=== PATIENT | male | born 1990 | race Caucasian/White ===

== ENCOUNTER 2016-11-05 12:23 | Emergency (ER) | payer BC, MEDICAID ==
--- NOTE | 2016-11-05 13:02 | EDM.PDOC ---
ED HPI ENT - General Chief Complaint: ENT Problem Stated Complaint: DENTAL COMPLAINT Time Seen by Provider: 11/05/16 12:50 Source of Information: Reports: Patient History Limitations: Reports: No limitations - History of Present Illness INITIAL COMMENTS - FREE TEXT/NARRATIVE: Patient presents for evaluation and treatment of dental pain and possibly a dental abscess. Patient reports that his symptoms have been going on for the last 3 days. He was seen in our ER on September 01, 2016 for a similar complaint. At that time he had several teeth pulled. He was started on clindamycin and given pain medications for an abscess at that time. Patient reports that he has not been able to get back to the dentist since his ER visit. Plan is to have additional teeth extracted. States after his ER visit the pain did subside with the antibiotic and pain medication. Patient reports he had a clindamycin left from his previous visit and took one pill today. He is currently complaining of pain to the left lower molars, headaches, nausea and chills. He states the pain is radiating up into his left ear. He denies any fevers or vomiting. Patient states that he has not taken anything for pain today. He does have a dental appointment for next week. - Related Data Allergies/ADRs: Allergies Allergy/AdvReac Type Severity Reaction Status Date / Time amoxicillin [From Augmentin] Allergy Rash Verified 11/05/16 12:36 clavulanic acid Allergy Rash Verified 11/05/16 12:36 [From Augmentin] Home Meds: Home Meds Acetaminophen/oxyCODONE [Percocet 325-5 MG] 1 tab PO Q6H PRN #15 tablet [Rx] Clindamycin HCl 300 mg PO TID #30 capsule 11/05/16 [Rx] Past Medical History - Past Health History Medical/Surgical History: Denies Medical/Surgical History - Past Surgical History HEENT Surgical History: Reports: Oral surgery Social & Family History - Tobacco Use Smoking Status *Q: Current Every Day Smoker Years of Tobacco use: 10 Packs/Tins Daily: 1 Used Tobacco, but Quit: No - Caffeine Use Caffeine Use: Reports: Soda - Recreational Drug Use Recreational Drug Use: No ED ROS ENT - Review of Systems Review Of Systems: See Below Constitutional: Reports: chills. Denies: fever HEENT: Reports: Dental pain (left lower molars), Ear pain (left) GI/Abdominal: Reports: Nausea. Denies: Vomiting Neurological: Reports: headache ED EXAM, ENT - Physical Exam Exam: See Below Exam Limited By: No limitations General Appearance: alert, WD/WN, no apparent distress Ears: normal external exam, normal canal, hearing grossly normal, normal TMs Nose: normal inspection Mouth/Throat: Normal inspection, Normal lips, Dental pain (#19), Dental tenderness (#9), Dental trauma (#18 and #20 absent), Gum swelling (erythematous , regressed gums arouns #19), Other (#19 multiple carries; poor dentition throughout) Neck: normal inspection, supple. No: lymphadenopathy (L), lymphadenopathy (R) Respiratory/Chest: no respiratory distress, lungs clear, normal breath sounds Cardiovascular: normal peripheral pulses, regular rate, rhythm, no murmur Course - Vital Signs Last Recorded V/S: Last Vital Signs Temp 36.3 C 11/05/16 12:32 Pulse 90 11/05/16 12:32 Resp 16 11/05/16 12:32 BP 157/94 H 11/05/16 12:32 Pulse Ox 100 11/05/16 12:32 - Re-Assessments/Exams Free Text/Narrative Re-Assessment/Exam: 11/05/16 13:00 Patient searched on [place] [employer] aware. 3 prescriptions for controlled substances within the last year for narcotics. Most recent prescription was 09-01-16 percocoet #14. Departure - Departure Time of Disposition: 13:04 Disposition: Home, Self-Care 01 Condition: fair Clinical Impression: Pain, dental, Dental abscess Prescriptions: Acetaminophen/oxyCODONE [Percocet 325-5 MG] 1 tab PO Q6H PRN #15 tablet PRN Reason: Pain Clindamycin HCl 300 mg PO TID #30 capsule Instructions: Dental Abscess, [id number] Referrals: PCP,None [Primary Care Provider] - Forms: ED Department Discharge Additional Instructions: Take [id number] Tylenol or Motrin as needed for pain relief. He may take the Percocet as needed for severe pain. No driving operating machinery within 12 hours of taking the Percocet. Percocet can be habit-forming, I recommend you take as few of these as needed to control your pain. There is Tylenol in Percocets, do not take [id number] Tylenol and Percocet together. Max amount of tylenol a day from all sources 4 grams. Take the antibiotic as prescribed. One tab every 8 hours or 3 times a day for 10 days. I recommend he take his antibiotic with food. I also recommend he start a probiotic to help reduce upset stomach. Followup with the dentist as soon as you were able to. Return to the ER should your symptoms change or worsen.
== END 2016-11-05 13:20 | disposition home or self-care (01) ==
LOC: JD.ED 12:23
CPT/HCPCS: 99282; 99283

== ENCOUNTER 2016-11-09 11:59 | Emergency (ER) | payer BC, MEDICAID ==
[2016-11-09 12:43] VITALS: BP 127/94
[2016-11-09] MEDS ORDERED: HYDROmorphone 1 MG/ML Syringe IM ONE (12:53)
[2016-11-09] MEDS ORDERED: Cyclobenzaprine 10 MG Tab PO ONE (12:53)
--- NOTE | 2016-11-09 13:19 | EDM.PDOC ---
ED HPI Trauma - General Chief Complaint: Lower Extremity Injury/Pain Stated Complaint: LEFT KNEE PAIN/UNABLE TO WALK Time Seen by Provider: 11/09/16 12:45 Source: Reports: Patient History Limitations: Reports: No limitations - History of Present Illness INITIAL COMMENTS - FREE TEXT/NARRATIVE: Patient is a 26 year old male who presents to the E.D. complaining of anterior/ posterior left knee pain. States the pain started yesterday afternoon with standing after being seated for a short while. States the pain has worsened since onset worsened with weight bearing. States he has taken one percocet this a.m. with minimal relief. 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 States left knee clicks and pops with ambulation. Denies any recent or prior history of injury to the left knee. Occurred When: yesterday Occurred Where: home Method of Injury: unknown Severity: moderate Pain/Injury Location: Reports: lower extremity, left Associated Symptoms: Reports: trouble walking Allergies/ADRs: Allergies amoxicillin [From Augmentin] Allergy (Verified 11/05/16 12:36) Rash clavulanic acid [From Augmentin] Allergy (Verified 11/05/16 12:36) Rash Home Medications: Ambulatory Orders Acetaminophen/oxyCODONE [Percocet 325-5 MG] 1 tab PO Q6H PRN #15 tablet [Confirmed 11/09/16] oxyCODONE HCl [Roxicodone] 0 mg PO ASDIRECTED 11/09/16 [Confirmed 11/09/16] Past Medical History - Past Health History Medical/Surgical History: Denies Medical/Surgical History HEENT History: Reports: Other (see below) Other HEENT History: fractured nose and re set - Past Surgical History HEENT Surgical History: Reports: Oral surgery, Other (see below) Other HEENT Surgeries/Procedures: dental issues recently Social & Family History - Tobacco Use Smoking Status *Q: Current Every Day Smoker Years of Tobacco use: 10 Packs/Tins Daily: 1 Used Tobacco, but Quit: No - Caffeine Use Caffeine Use: Reports: Coffee, Energy drinks, Soda, Tea - Recreational Drug Use Recreational Drug Use: No Review of Systems - Review of Systems Review Of Systems: See Below Musculoskeletal: Reports: joint pain (left posterior knee pain). Denies: leg pain, joint swelling Neurological: Denies: numbness, tingling Trauma Exam - Physical Exam Exam: See Below Exam Limited By: No limitations General Appearance: Reports: alert, WD/WN, mild distress Ears: Reports: hearing grossly normal Throat/Mouth: Reports: Normal voice, No airway compromise Respiratory Exam: Reports: no respiratory distress, no accessory muscle use Cardiovascular: Reports: normal peripheral pulses, regular rate, rhythm Extremities: Reports: no evidence of injury, no pedal edema, pain with movement (left knee), unable to bear weight (2nd to pain left knee), other (Pain to the left knee with flexion and extension. In creased pain with palpation of the posterior knee. Unable to assess for instability 2nd to pain. No swelling, bruising, or crepitus noted. 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, no motor/sensory deficits, alert , normal mood/affect, oriented x 3 Skin: Reports: Normal color, Warm/dry Course - Vital Signs Last Recorded V/S: Last Vital Signs Temp 98.0 F 11/09/16 12:42 Pulse 89 11/09/16 12:42 Resp 20 11/09/16 12:42 BP 127/94 H 11/09/16 12:42 Pulse Ox 96 11/09/16 12:42 - Orders/Labs/Meds Orders: Active Orders 24 hr Category Date Time Status Knee Min 4V Lt [CR] Stat Exams 11/09/16 13:02 Taken Meds: Medications Discontinued Medications Generic Name Dose Route Start Last Admin Trade Name Stephenq PRN Reason Stop Dose Admin Cyclobenzaprine HCl 10 mg 11/09/16 12:53 11/09/16 13:16 Flexeril PO 11/09/16 12:54 10 mg ONETIME ONE Administration Hydromorphone HCl 1 mg 11/09/16 12:53 11/09/16 13:17 Dilaudid IM 11/09/16 12:54 1 mg ONETIME ONE Administration - Re-Assessments/Exams Free Text/Narrative Re-Assessment/Exam: 11/09/16 13:06 Ordered flexeril 10mg PO and Dilaudid 1 mg IM. Ordered 3 view of the left knee. Patient has low risk of having a DVT. He has no previous DVT/PE, unilateral leg swelling, recent hospitalization, or recent surgery. Unclear how much patient has been sitting around at home. Examination is not concerning for DVT. Most likely etiology musculoskeletal. 11/09/16 13:20 X-ray of the left knee reveal no acute bony abnormalities noted. Final interpretation pending. Reassessment, pain has significantly decreased with the above therapies. Pain is isolated to the anterior aspect of the knee with weightbearing. No pain posteriorly noted. Increased flexion/extension. Will discharge home with crutches and waqas wrap to be applied to left knee. Instructions as documented. Departure - Departure Time of Disposition: 14:31 Disposition: Home, Self-Care 01 Condition: good Clinical Impression: Knee pain, left anterior Instructions: Crutch Use, [id number] Referrals: PCP,None [Primary Care Provider] - Caleb Mares MD [Physician] - Forms: ED Department Discharge, Return to Work/School Form Additional Instructions: You are to be nonweightbearing utilizing crutches to ambulate for the next 3 days. Thereafter advance weight as tolerated to the affected knee. Take ibuprofen and Tylenol in alternating fashion for discomfort. Apply ice to the affected knee 6 times daily, 20 minutes in duration, do not place ice directly on the skin. Refrain from activities that cause worsening pain. Followup with orthopedic surgeon in 10-14 days if symptoms have not drastically improved. Return back to ED for any new or worsening symptoms. No driving today since receiving a sedative medication in the ED. - My Orders Last 24 Hours: My Active Orders 11/09/16 13:02 Knee Min 4V Lt [CR] Stat - Assessment/Plan Last 24 Hours: My Active Orders 11/09/16 13:02 Knee Min 4V Lt [CR] Stat
--- NOTE | 2016-11-10 08:01 | CR ---
Left knee: Four views of the left knee were obtained. Comparison: No previous study. Slight medial joint space narrowing is identified as compared to the lateral joint. Lateral joint is preserved. No joint effusion is seen. No fracture or other bony abnormality is identified. Impression: 1. Mild medial joint space narrowing. 2. Left knee exam is otherwise unremarkable. Diagnostic code #2
== END 2016-11-09 14:48 | disposition home or self-care (01) ==
LOC: JD.ED 11:59
DX: M25.562 Pain in left knee (principal); F17.210 Nicotine dependence, cigarettes, uncomplicated; Z88.1 Allergy status to other antibiotic agents
CPT/HCPCS: 73564; 96372; 99283; A9270; J1170; 99284; 99284-25

== ENCOUNTER 2017-04-03 15:09 | Emergency (ER) | payer BC, MEDICAID ==
[2017-04-03] MEDS ORDERED: Sodium Chloride 0.9% 10 ML Syringe FLUSH PRN ×2 (15:28→15:53)
[2017-04-03] MEDS ORDERED: Ondansetron 4 MG/2 ML SDV IVPUSH ONE (15:30)
[2017-04-03] MEDS ORDERED: HYDROmorphone 1 MG/ML Syringe IVPUSH ONE (15:30)
--- NOTE | 2017-04-03 15:40 | EDM.PDOC ---
ED HPI GENERAL MEDICAL PROBLEM - General Chief Complaint: Abdominal Pain Stated Complaint: ABDOMINAL PAIN Time Seen by Provider: 04/03/17 15:19 Source of Information: Reports: Patient History Limitations: Reports: No Limitations - History of Present Illness INITIAL COMMENTS - FREE TEXT/NARRATIVE: Patient is a 26-year-old male who presents to the ED complaining of severe lower left sided abdominal pain. Patient states he has a history of constipation and took multiple [id number] products to alleviate this. States he's had 2 large bowel movements once yesterday and today at 10:00. BM was described as soft, formed, with no blood present. Pain to the abdomen started just prior to last BM. Pain to the abdomen described as sharp sensation worsened with palpation. He has no previous history as such. Has no previous abdominal surgeries. Patient did vomit 1 prior to arriving to the ED. He has been shaking and sweating secondary to the pain. No documentation for fever. No history of ingesting bad or questionable food or recent out of country travel. Past medical history none stated current medications none stated surgical history noncontributory Smoking history one pack per day, no alcohol use recently, no recreational drug use, no PCP. Left Abdomen Pain Score (Numeric/FACES): 10 - Related Data Allergies Allergy/AdvReac Type Severity Reaction Status Date / Time acetaminophen Allergy Nausea Verified 04/03/17 19:41 amoxicillin [From Augmentin] Allergy Rash Verified 04/03/17 16:29 clavulanic acid Allergy Rash Verified 04/03/17 16:29 [From Augmentin] Home Meds: Home Meds Ciprofloxacin HCl [Cipro] 500 mg PO BID #14 tablet 04/03/17 [Rx] Ondansetron [Zofran ODT] 4 mg PO Q6H PRN #10 tab.dis 04/03/17 [Rx] oxyCODONE 5 mg PO Q6H PRN #12 tablet 04/03/17 [Rx] Past Medical History - Past Health History Medical/Surgical History: Denies Medical/Surgical History HEENT History: Reports: Other (See Below) Other HEENT History: fractured nose and re set - Past Surgical History HEENT Surgical History: Reports: Oral Surgery, Other (See Below) Social & Family History - Tobacco Use Smoking Status *Q: Current Every Day Smoker Years of Tobacco use: 8 Packs/Tins Daily: 1 Used Tobacco, but Quit: No - Caffeine Use Caffeine Use: Reports: Tea - Recreational Drug Use Recreational Drug Use: No ED ROS GENERAL - Review of Systems Review Of Systems: ROS reveals no pertinent complaints other than HPI. ED EXAM, GI/ABD - Physical Exam Exam: See Below Exam Limited By: No Limitations General Appearance: Alert, WD/WN, Severe Distress Ears: Hearing Loss Nose: Normal Inspection Throat/Mouth: Normal Voice, No Airway Compromise Neck: Normal Inspection, Supple Respiratory/Chest: No Respiratory Distress, Lungs Clear, Normal Breath Sounds Cardiovascular: Normal Peripheral Pulses, Regular Rate, Rhythm GI/Abdominal Exam: Distended, Guarding, Rigid, Tender (diffuse ), Other (poor abdomen exam. Patient laying on his left side. Unable to lay on his back. ) (Male) Exam: Deferred Rectal (Males) Exam: Deferred Back Exam: Normal Inspection, Full Range of Motion. No: CVA Tenderness (L), CVA Tenderness (R) Neurological: Alert, Oriented, CN II-XII Intact, Normal Cognition, No Motor/ Sensory Deficits Psychiatric: Tearful (2nd to pain) Skin Exam: Warm, Dry, Intact Course - Vital Signs Last Recorded V/S: Last Vital Signs Temp 99.3 F 04/03/17 16:28 Pulse 78 04/03/17 19:44 Resp 16 04/03/17 19:44 BP 130/78 04/03/17 19:44 Pulse Ox 100 04/03/17 19:44 - Orders/Labs/Meds Orders: Active Orders 24 hr Category Date Time Status Peripheral IV Care [RC] . DIRECTED Care 04/03/17 15:28 Active CULTURE BLOOD [BC] Stat Lab 04/03/17 15:46 Received CULTURE BLOOD [BC] Stat Lab 04/03/17 15:54 Received Blood Culture x2 Reflex Set [OM.PC] Stat Oth 04/03/17 15:28 Ordered Peripheral IV Insertion Adult [OM.PC] Stat Oth 04/03/17 15:28 Ordered Labs: Laboratory Tests 04/03/17 04/03/17 04/03/17 Range/Units 15:46 15:46 15:46 WBC 18.24 H (4.23-9.07) K/mm3 RBC 5.63 (4.63-6.08) M/mm3 Hgb 17.7 H (13.7-17.5) gm/L Hct 48.5 (40.1-51.0) % MCV 86.1 (79.0-92.2) fl MCH 31.4 (25.7-32.2) pg MCHC 36.5 H (32.2-35.5) g/dl RDW Std Deviation 38.2 (35.1-43.9) fL Plt Count 367 H (163-337) K/mm3 MPV 9.3 L (9.4-12.3) fl Neut % (Auto) 89.6 H (34.0-67.9) % Lymph % (Auto) 5.5 L (21.8-53.1) % [place] % (Auto) 4.6 L (5.3-12.2) % Eos % (Auto) 0 L (0.8-7.0) Baso % (Auto) 0.1 (0.1-1.2) % Neut # (Auto) 16.34 H (1.78-5.38) K/mm3 Lymph # (Auto) 1.00 L (1.32-3.57) K/mm3 [place] # (Auto) 0.84 H (0.30-0.82) K/mm3 Eos # (Auto) 0.00 L (0.04-0.54) K/mm3 Baso # (Auto) 0.02 (0.01-0.08) K/mm3 Manual Slide Review Normal smear Sodium 143 (136-145) mEq/L Potassium 3.3 L (3.5-5.1) mEq/L Chloride 105 (98-107) mEq/L Carbon Dioxide 21 (21-32) mEq/L Anion Gap 20.3 H (5-15) BUN 17 (7-18) mg/dL Creatinine 1.3 (0.7-1.3) mg/dL Est Cr Clr Drug Dosing TNP Estimated GFR (MDRD) > 60 (>60) mL/min BUN/Creatinine Ratio 13.1 L (14-18) Glucose 141 H (74-106) mg/dL Lactic Acid 2.4 H (0.4-2.0) mmol/L Calcium 10.4 H (8.5-10.1) mg/dL Total Bilirubin 1.1 H (0.2-1.0) mg/dL AST 23 (15-37) U/L ALT 29 (16-63) U/L Alkaline Phosphatase 88 (46-116) U/L C-Reactive Protein < 0.2 (<1.0) mg/dL Total Protein 8.8 H (6.4-8.2) g/dl Albumin 5.0 (3.4-5.0) g/dl Globulin 3.8 gm/dL Albumin/Globulin Ratio 1.3 (1-2) Lipase 130 (73-393) U/L Urine Color (Yellow) Urine Appearance (Clear) Urine pH (5.0-8.0) Ur Specific [place] (1.005-1.030) Urine Protein (Negative) Urine Glucose (UA) (Negative) Urine Ketones (Negative) Urine Occult Blood (Negative) Urine Nitrite (Negative) Urine Bilirubin (Negative) Urine Urobilinogen (0.2-1.0) Ur Leukocyte Esterase (Negative) Urine RBC (0-5) /hpf Urine WBC (0-5) /hpf Ur Epithelial Cells (0-5) /hpf Urine Bacteria (FEW) /hpf Urine Mucus (FEW) /hpf Urine Opiates Screen (NEGATIVE) Ur Buprenorphine Scrn (NEGATIVE) Ur Oxycodone Screen (NEGATIVE) Urine Methadone Screen (NEGATIVE) Ur Propoxyphene Screen (NEGATIVE) Ur Barbiturates Screen (NEGATIVE) Ur Tricyclics Screen (NEGATIVE) Ur Phencyclidine Scrn (NEGATIVE) Ur Amphetamine Screen (NEGATIVE) U Methamphetamines Scrn (NEGATIVE) U Benzodiazepines Scrn (NEGATIVE) U Cocaine Metab Screen (NEGATIVE) U Marijuana (THC) Screen (NEGATIVE) 04/03/17 04/03/17 Range/Units 16:00 16:00 WBC (4.23-9.07) K/mm3 RBC (4.63-6.08) M/mm3 Hgb (13.7-17.5) gm/L Hct (40.1-51.0) % MCV (79.0-92.2) fl MCH (25.7-32.2) pg MCHC (32.2-35.5) g/dl RDW Std Deviation (35.1-43.9) fL Plt Count (163-337) K/mm3 MPV (9.4-12.3) fl Neut % (Auto) (34.0-67.9) % Lymph % (Auto) (21.8-53.1) % [place] % (Auto) (5.3-12.2) % Eos % (Auto) (0.8-7.0) Baso % (Auto) (0.1-1.2) % Neut # (Auto) (1.78-5.38) K/mm3 Lymph # (Auto) (1.32-3.57) K/mm3 [place] # (Auto) (0.30-0.82) K/mm3 Eos # (Auto) (0.04-0.54) K/mm3 Baso # (Auto) (0.01-0.08) K/mm3 Manual Slide Review Sodium (136-145) mEq/L Potassium (3.5-5.1) mEq/L Chloride (98-107) mEq/L Carbon Dioxide (21-32) mEq/L Anion Gap (5-15) BUN (7-18) mg/dL Creatinine (0.7-1.3) mg/dL Est Cr Clr Drug Dosing Estimated GFR (MDRD) (>60) mL/min BUN/Creatinine Ratio (14-18) Glucose (74-106) mg/dL Lactic Acid (0.4-2.0) mmol/L Calcium (8.5-10.1) mg/dL Total Bilirubin (0.2-1.0) mg/dL AST (15-37) U/L ALT (16-63) U/L Alkaline Phosphatase (46-116) U/L C-Reactive Protein (<1.0) mg/dL Total Protein (6.4-8.2) g/dl Albumin (3.4-5.0) g/dl Globulin gm/dL Albumin/Globulin Ratio (1-2) Lipase (73-393) U/L Urine Color Yellow (Yellow) Urine Appearance Cloudy H (Clear) Urine pH 6.0 (5.0-8.0) Ur Specific [place] > or = 1.030 (1.005-1.030) Urine Protein 2+ H (Negative) Urine Glucose (UA) Negative (Negative) Urine Ketones 1+ H (Negative) Urine Occult Blood 3+ H (Negative) Urine Nitrite Negative (Negative) Urine Bilirubin 1+ H (Negative) Urine Urobilinogen 0.2 (0.2-1.0) Ur Leukocyte Esterase Negative (Negative) Urine RBC >100 H (0-5) /hpf Urine WBC 0-5 (0-5) /hpf Ur Epithelial Cells 0-5 (0-5) /hpf Urine Bacteria Moderate H (FEW) /hpf Urine Mucus Moderate H (FEW) /hpf Urine Opiates Screen Presumptive positive H (NEGATIVE) Ur Buprenorphine Scrn Negative (NEGATIVE) Ur Oxycodone Screen Presumptive positive H (NEGATIVE) Urine Methadone Screen Negative (NEGATIVE) Ur Propoxyphene Screen Negative (NEGATIVE) Ur Barbiturates Screen Negative (NEGATIVE) Ur Tricyclics Screen Negative (NEGATIVE) Ur Phencyclidine Scrn Negative (NEGATIVE) Ur Amphetamine Screen Negative (NEGATIVE) U Methamphetamines Scrn Negative (NEGATIVE) U Benzodiazepines Scrn Negative (NEGATIVE) U Cocaine Metab Screen Negative (NEGATIVE) U Marijuana (THC) Screen Negative (NEGATIVE) Meds: Medications Discontinued Medications Generic Name Dose Route Start Last Admin Trade Name Freq PRN Reason Stop Dose Admin Cefepime HCl 2 gm 04/03/17 17:01 04/03/17 17:17 Maxipime IV 04/03/17 17:02 Not Given ONETIME ONE Diatrizoate Meglum/Diatrizoate Sod 120 ml 04/03/17 15:53 04/03/17 16:51 Gastrografin 37% PO 04/03/17 15:54 90 ml ONETIME ONE Administration Hydromorphone HCl 1 mg 04/03/17 15:30 04/03/17 15:39 Dilaudid IVPUSH 04/03/17 15:31 1 mg ONETIME ONE Administration Hydromorphone HCl 0.5 mg 04/03/17 17:42 04/03/17 17:56 Dilaudid IVPUSH 04/03/17 17:43 0.5 mg ONETIME ONE Administration Sodium Chloride 1,000 mls @ 500 mls/hr 04/03/17 15:45 04/03/17 15:35 Normal Saline IV 500 mls/hr ASDIRECTED ALISHA Administration Metronidazole 500 mg/ Premix 100 mls @ 100 mls/hr 04/03/17 17:02 04/03/17 17: 13 IV 04/03/17 18:01 100 mls/hr ONETIME ONE Administration Cefepime HCl Confirm 04/03/17 17:11 04/03/17 17:17 Maxipime In D5w 2 Gm/50 Ml Administered 04/03/17 17:12 Not Given Dose 50 mls @ as directed .ROUTE .STK-MED ONE Cefepime HCl 2 gm/ Premix 50 mls @ 100 mls/hr 04/03/17 17:10 04/03/17 17:13 IV 04/03/17 17:39 100 mls/hr ONETIME STA Administration Sodium Chloride 1,000 mls @ 999 mls/hr 04/03/17 17:13 04/03/17 17:55 Normal Saline IV 04/03/17 18:13 999 mls/hr ONETIME ONE Administration Iopamidol 150 ml 04/03/17 15:53 04/03/17 16:51 Isovue-300 (61%) IVPUSH 04/03/17 15:54 125 ml ONETIME ONE Administration Ondansetron HCl 4 mg 04/03/17 15:30 04/03/17 15:38 Zofran IVPUSH 04/03/17 15:31 4 mg ONETIME ONE Administration Sodium Chloride 10 ml 04/03/17 15:28 04/03/17 15:44 Saline Flush FLUSH 10 ml ASDIRECTED PRN Administration Keep Vein Open Sodium Chloride 10 ml 04/03/17 15:53 04/03/17 16:51 Saline Flush FLUSH 10 ml ONETIME PRN Administration IV FLUSH - Re-Assessments/Exams Free Text/Narrative Re-Assessment/Exam: Patient's in a severe amount of pain. Ordered peripheral IV with NS 250 mls per hour, Zofran 4 mg IVP, and Dilaudid 1 mg IVP. Labs and studies include CBC, chem 14, CRP, blood cultures 2, lactic acid, lipase, and urine drug screen, UA , and CT of the abdomen with oral and IV contrast. 04/03/17 17:06White blood cell count 18.24, hemoglobin 17.7, platelets are 367, neutrophil percentage of 89.6 with a left shift 16.34, sodium 143, potassium 3.3 , I and gap 20.3, creatinine 1.3, glucose 141, lactic acid 2.4, total bilirubin is 1.1, lipase 130. Urine drug tox positive for opiates and oxycodone. UA revealed appearance cloudy, protein 2+, ketones 1+, occult blood 3+, bilirubin 1+, rbc's greater than 100, bacteria moderate, mucous moderate. Patient denies any history of kidney stones. 04/03/17 17:02 Spoke with the pharmacist field supervisor seed production recommended cefepime 2 g IV and also Flagyl 500 mg IVP for antibiotic therapy. Patient has allergies to amoxicillin. 04/03/17 17:42 Patient complaining of pain to abdomen. Dilaudid 0.5mg IVP. 04/03/17 18:05 CT abdomen and pelvis impression: Fluid within the colon and within several distal small bowel loops. Please correlate the patient has any symptoms of gastroenteritis. Low density lesion within the left kidney believed to represent small cysts. No additional abnormality is identified on CT study of the abdomen and pelvis. Patient is resting comfortably in bed. Pain is been controlled with the above therapies. Has no more nausea. Patient will be discharged home with instructions as documented. Departure - Departure Time of Disposition: 19:42 Disposition: Home, Self-Care 01 Condition: Fair Clinical Impression: Gastroenteritis Hematuria Qualifiers: Hematuria type: unspecified type Qualified Code(s): R31.9 - Hematuria, unspecified - Discharge Information Prescriptions: Ciprofloxacin HCl [Cipro] 500 mg PO BID #14 tablet Ondansetron [Zofran ODT] 4 mg PO Q6H PRN #10 tab.dis PRN Reason: Nausea/Vomiting oxyCODONE 5 mg PO Q6H PRN #12 tablet PRN Reason: Pain (Severe 7-10) Instructions: Viral Gastroenteritis, Adult, [id number], Abdominal Pain, Adult , [id number], Nausea and Vomiting, Adult, Alla-ns-Mkti, Pain Medicine Instructions, [id number] Referrals: PCP,None [Primary Care Provider] - Yanet Martel [Physician] - 3 Days Forms: ED Department Discharge Additional Instructions: Take the Cipro, Zofran, and oxycodone as prescribed. Stick with a clear liquid diet for the next 48 hours advancing there after to a bland diet. Refrain from fruit juices, rales fruits/vegetables, dairy products, or any other aggravating foods. Push the fluids: Gatorade, Powerade, or Pedialyte. Follow-up with PCP provider in 3 days for reevaluation. No driving this evening nor while taking the [place]. Return to ED for any new or worsening symptoms. - My Orders Last 24 Hours: My Active Orders 04/03/17 15:28 Peripheral IV Care [RC] . DIRECTED Blood Culture x2 Reflex Set [OM.PC] Stat Peripheral IV Insertion Adult [OM.PC] Stat 04/03/17 15:46 CULTURE BLOOD [BC] Stat 04/03/17 15:54 CULTURE BLOOD [BC] Stat - Assessment/Plan Last 24 Hours: My Active Orders 04/03/17 15:28 Peripheral IV Care [RC] . DIRECTED Blood Culture x2 Reflex Set [OM.PC] Stat Peripheral IV Insertion Adult [OM.PC] Stat 04/03/17 15:46 CULTURE BLOOD [BC] Stat 04/03/17 15:54 CULTURE BLOOD [BC] Stat
[2017-04-03] MEDS ORDERED: Sodium Chloride 0.9% 1,000 ML IV SCH (15:45)
[2017-04-03] MEDS ORDERED: Diatrizoate Meglumine/Diatrizoate Sodium 37% 120 ML Bottle PO ONE (15:53)
[2017-04-03] MEDS ORDERED: Iopamidol 612 MG/ML 150 ML Bottle IVPUSH ONE (15:53)
[2017-04-03] MEDS ORDERED: Cefepime 1 GM Vial IV ONE (17:01)
[2017-04-03] MEDS ORDERED: metroNIDAZOLE/Normal Saline 500 MG in Premix Bag 1 BAG IV ONE (17:02)
[2017-04-03] MEDS ORDERED: Cefepime 2 GM in Premix Bag 1 BAG IV STA (17:10)
[2017-04-03] MEDS ORDERED: Cefepime 50 ML ONE (17:11)
[2017-04-03] MEDS ORDERED: Sodium Chloride 0.9% 1,000 ML IV ONE (17:13)
[2017-04-03] MEDS ORDERED: HYDROmorphone 0.5 MG/0.5 ML Syringe IVPUSH ONE (17:42)
--- NOTE | 2017-04-03 17:52 | CT ---
CT abdomen and pelvis Technique: Multiple axial sections were obtained from above the dome of the diaphragm inferiorly to the pubic symphysis. Intravenous and oral contrast has been given. Delayed images were obtained through the bladder. Comparison: No previous abdominal imaging is available. Findings: Visualized lung bases are clear. Liver shows no focal parenchymal abnormality. Spleen appears within normal limits. Adrenal glands show no nodule. Pancreas is within normal limits. Kidneys show symmetric contrast enhancement without hydronephrosis. Low density lesion seen within the left kidney most likely representing a cyst measuring 1.0 cm. Aorta shows no aneurysmal dilatation. Gallbladder shows no calcifications. No retroperitoneal adenopathy is seen. Appendix is seen which appears normal. Fluid is identified throughout the colon. Several distal small bowel loops also show some fluid. No bowel dilatation is seen. No pelvic mass or adenopathy is seen. Delayed images shows contrast within the bladder. Impression: 1. Fluid within the colon and within several distal small bowel loops. Please correlate if patient has any symptoms of gastroenteritis. 2. Low-density lesion within the left kidney believed to represent small cyst. 3. No additional abnormality is identified on CT study of the abdomen and pelvis. Diagnostic code #3
[2017-04-04 00:20] VITALS: BP 130/78
== END 2017-04-03 19:35 | disposition home or self-care (01) ==
LOC: JD.ED 15:09
DX: K52.9 Noninfective gastroenteritis and colitis, unspecified (principal); R31.9 Hematuria, unspecified; F17.210 Nicotine dependence, cigarettes, uncomplicated; Z98.890 Other specified postprocedural states; Z88.1 Allergy status to other antibiotic agents
CPT/HCPCS: 36415; 74177; 80053; 80306; 81001; 83605; 83690; 85025; 86140; 87040; 96361; 96365; 96368; 96375; 96376; 99284; J0692; J1170; J2405; J7040; J7050; Q9963; Q9967

== ENCOUNTER 2017-04-11 15:39 | Emergency (ER) | payer BC, MEDICAID ==
[2017-04-11 15:51] VITALS: BP 144/96
[2017-04-11] MEDS ORDERED: Ketorolac 60 MG/2 ML SDV IM ONE (17:00)
--- NOTE | 2017-04-11 17:00 | EDM.PDOC ---
ED HPI GENERAL MEDICAL PROBLEM - General Chief Complaint: Abdominal Pain Stated Complaint: Abdominal pain Time Seen by Provider: 04/11/17 16:00 Source of Information: Reports: Patient, RN Notes Reviewed History Limitations: Reports: No Limitations - History of Present Illness INITIAL COMMENTS - FREE TEXT/NARRATIVE: 26 year old male presents to the ED with LLQ abdominal pain. The pain is described as constant with periods of more severe, sharp pain. He has nausea with 1 emesis today. He had similar symptoms about 1 week ago and came to the ER. He was diagnosed with gastroenteritis and was started on cipro, oxycodone, and zofran. He finished his antibiotics yesterday. He ran out of his oxycodone today. His last BM was today. No fever or chills. He reports mild low back pain. Left Abdominal Pain Score (Numeric/FACES): 6 - Related Data Allergies Allergy/AdvReac Type Severity Reaction Status Date / Time acetaminophen Allergy Nausea Verified 04/11/17 15:51 amoxicillin [From Augmentin] Allergy Rash Verified 04/11/17 15:51 clavulanic acid Allergy Rash Verified 04/11/17 15:51 [From Augmentin] Iodinated Contrast- Oral and Allergy Sneezing Verified 04/11/17 15:51 IV Dye Home Meds: Home Meds Ciprofloxacin HCl [Cipro] 500 mg PO BID #14 tablet 04/03/17 [Rx] Ondansetron [Zofran ODT] 4 mg PO Q6H PRN #10 tab.dis 04/03/17 [Rx] oxyCODONE 5 mg PO Q6H PRN #12 tablet 04/03/17 [Rx] Ondansetron HCl [Zofran] 4 mg PO Q6H PRN #10 tablet 04/11/17 [Rx] oxyCODONE 5 mg PO Q6H PRN #10 tablet 04/11/17 [Rx] Past Medical History - Past Health History Medical/Surgical History: Denies Medical/Surgical History HEENT History: Reports: Other (See Below) Other HEENT History: fractured nose and re set - Past Surgical History HEENT Surgical History: Reports: Oral Surgery Social & Family History - Tobacco Use Smoking Status *Q: Current Every Day Smoker Years of Tobacco use: 7 Packs/Tins Daily: 1 Used Tobacco, but Quit: No - Caffeine Use Caffeine Use: Reports: Tea - Recreational Drug Use Recreational Drug Use: No ED ROS GENERAL - Review of Systems Review Of Systems: See Below Constitutional: Reports: No Symptoms. Denies: Fever, Chills Respiratory: Reports: No Symptoms. Denies: Shortness of Breath Cardiovascular: Reports: No Symptoms. Denies: Chest Pain GI/Abdominal: Reports: Abdominal Pain, Nausea, Vomiting. Denies: Bloody Stool, Constipation, Diarrhea, Decreased Appetite : Reports: No Symptoms. Denies: Dysuria, Flank Pain, Frequency, Hematuria Musculoskeletal: Reports: Back Pain ED EXAM, GI/ABD - Physical Exam Exam: See Below Exam Limited By: No Limitations General Appearance: Alert, WD/WN, No Apparent Distress Respiratory/Chest: No Respiratory Distress, Lungs Clear, Normal Breath Sounds Cardiovascular: Regular Rate, Rhythm GI/Abdominal Exam: Soft, No Organomegaly, No Distention, No Abnormal Bruit, Tender (LLQ, no guarding or rigidity. No rebound tenderness. ), Other ( hyperactive bowel sounds ) Back Exam: Normal Inspection, Full Range of Motion. No: CVA Tenderness (L), CVA Tenderness (R) Neurological: Alert, Oriented, Normal Cognition Course - Vital Signs Last Recorded V/S: Last Vital Signs Temp 97.7 F 04/11/17 15:47 Pulse 80 04/11/17 15:47 Resp 16 04/11/17 15:47 BP 144/96 H 04/11/17 15:47 Pulse Ox 97 04/11/17 15:47 - Orders/Labs/Meds Labs: Laboratory Tests 04/11/17 04/11/17 04/11/17 Range/Units 16:30 16:32 16:32 WBC 8.94 (4.23-9.07) K/mm3 RBC 5.08 (4.63-6.08) M/mm3 Hgb 16.1 (13.7-17.5) gm/L Hct 45.3 (40.1-51.0) % MCV 89.2 (79.0-92.2) fl MCH 31.7 (25.7-32.2) pg MCHC 35.5 (32.2-35.5) g/dl RDW Std Deviation 40.5 (35.1-43.9) fL Plt Count 313 (163-337) K/mm3 MPV 9.1 L (9.4-12.3) fl Neutrophils % (Manual) 69 H (40-60) % Band Neutrophils % 0 (0-10) % Lymphocytes % (Manual) 26 (20-40) % Atypical Lymphs % 0 % Monocytes % (Manual) 3 (2-10) % Eosinophils % (Manual) 2 (0.8-7.0) % Basophils % (Manual) 0 L (0.2-1.2) Platelet Estimate Adequate RBC Morph Comment Normal Sodium 140 (136-145) mEq/L Potassium 4.0 (3.5-5.1) mEq/L Chloride 105 (98-107) mEq/L Carbon Dioxide 31 (21-32) mEq/L Anion Gap 8.0 (5-15) BUN 9 (7-18) mg/dL Creatinine 1.0 (0.7-1.3) mg/dL Est Cr Clr Drug Dosing TNP Estimated GFR (MDRD) > 60 (>60) mL/min BUN/Creatinine Ratio 9.0 L (14-18) Glucose 104 (74-106) mg/dL Calcium 9.3 (8.5-10.1) mg/dL Total Bilirubin 0.9 (0.2-1.0) mg/dL AST 21 (15-37) U/L ALT 33 (16-63) U/L Alkaline Phosphatase 82 (46-116) U/L C-Reactive Protein < 0.2 (<1.0) mg/dL Total Protein 7.3 (6.4-8.2) g/dl Albumin 4.2 (3.4-5.0) g/dl Globulin 3.1 gm/dL Albumin/Globulin Ratio 1.4 (1-2) Lipase 128 (73-393) U/L Urine Color Yellow (Yellow) Urine Appearance Slt cloudy H (Clear) Urine pH 7.0 (5.0-8.0) Ur Specific [place] > or = 1.030 (1.005-1.030) Urine Protein Negative (Negative) Urine Glucose (UA) Negative (Negative) Urine Ketones Negative (Negative) Urine Occult Blood Negative (Negative) Urine Nitrite Negative (Negative) Urine Bilirubin Negative (Negative) Urine Urobilinogen 0.2 (0.2-1.0) Ur Leukocyte Esterase Negative (Negative) Urine RBC 0-5 (0-5) /hpf Urine WBC 0-5 (0-5) /hpf Ur Epithelial Cells 0-5 (0-5) /hpf Amorphous Sediment Few H (NOT SEEN) /hpf Urine Bacteria Moderate H (FEW) /hpf Urine Mucus Few (FEW) /hpf Meds: Medications Discontinued Medications Generic Name Dose Route Start Last Admin Trade Name Luz Elena PRN Reason Stop Dose Admin Ketorolac Tromethamine 60 mg 04/11/17 17:00 04/11/17 17:03 Toradol IM 04/11/17 17:01 60 mg ONETIME ONE Administration - Re-Assessments/Exams Free Text/Narrative Re-Assessment/Exam: CBC, CMP, lipase, and CRP are all WNL. UA is negative for infection or hematuria. Imaging is not indicated. The patient is likely constipated due to pain medication. He was educated on treatment and prevention of constipation. He was instructed to f/u in clinic this week for recheck and to consider colonoscopy if he continues to have problems. Discharge instructions as documented. Departure - Departure Time of Disposition: 17:37 Disposition: Home, Self-Care 01 Condition: Good Clinical Impression: Abdominal pain Qualifiers: Abdominal location: left lower quadrant Qualified Code(s): R10.32 - Left lower quadrant pain Constipation Qualifiers: Constipation type: unspecified constipation type Qualified Code(s): K59.00 - Constipation, unspecified - Discharge Information Prescriptions: Ondansetron HCl [Zofran] 4 mg PO Q6H PRN #10 tablet PRN Reason: Nausea/Vomiting oxyCODONE 5 mg PO Q6H PRN #10 tablet PRN Reason: Abdominal Pain Referrals: PCP,None [Primary Care Provider] - Forms: ED Department Discharge Additional Instructions: Miralax 1 capful 1-2 times a day to keep bowels regular and soft Drink at least 80 oz of water per day Increase fiber in your diet with fruits, vegetables, and whole grains Follow-up in clinic in 2-3 days for recheck and consider scheduling a colonoscopy Oxycodone 5mg every 6 hours as needed for pain Zofran 4mg every 6 hours as needed for nausea Return to ER with any new or worsening symptoms
== END 2017-04-11 17:50 | disposition home or self-care (01) ==
LOC: JD.ED 15:39
DX: K59.00 Constipation, unspecified (principal); F17.210 Nicotine dependence, cigarettes, uncomplicated; Z88.6 Allergy status to analgesic agent; Z88.1 Allergy status to other antibiotic agents; Z91.041 Radiographic dye allergy status
CPT/HCPCS: 36415; 80053; 81001; 83690; 85025; 86140; 96372; 99284; J1885; 99283

== ENCOUNTER 2018-05-07 07:27 | Emergency (ER) | payer BC ==
[2018-05-07 07:44] VITALS: BP 136/78
[2018-05-07] MEDS ORDERED: Metoclopramide 10 MG/2 ML SDV IVPUSH ONE (07:57)
[2018-05-07] MEDS ORDERED: HYDROmorphone 0.5 MG/0.5 ML SYRINGE IVPUSH ONE ×2 (07:57→10:19)
[2018-05-07] MEDS ORDERED: Dextrose 5%-0.9% NaCl 1,000 ML IV SCH (08:00)
[2018-05-07] MEDS ORDERED: Ketorolac 30 MG/ML SDV IVPUSH SCH (08:00)
--- NOTE | 2018-05-07 08:03 | EDM.PDOC ---
ED HPI GENERAL MEDICAL PROBLEM - General Chief Complaint: Abdominal Pain Stated Complaint: vomiting Time Seen by Provider: 05/07/18 07:57 Source of Information: Reports: Patient History Limitations: Reports: Altered Mental Status (Patient keeps on falling asleep during the interview.) - History of Present Illness INITIAL COMMENTS - FREE TEXT/NARRATIVE: 27-year-old male presents to the ED with a history of right upper quadrant abdominal pain epigastric discomfort since about 11:00 yesterday morning. This has precipitated recurrent nausea and vomiting of bilious material without any hematemesis during the night. Slept very poorly due to the severity of pain. Estimates he vomited 5 or 6 times.. Has been able to keep much down the last 12 hours. States even water comes back up. Feels lightheaded dizzy and weak. Patient keeps falling asleep during the interview. 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 States he couldn't stand the pain this morning and the pain is present gradually progressed over the last 20 hours. It's mostly right upper quadrant but also has some pain in the right lower quadrant of the abdomen. It radiates around into his back infrascapular area. No previous similar problems. No previous surgery of the abdomen. Does not have a continuous need to void. No fever or chills. Again history difficult to obtain as he keeps falling asleep during our interview. Appears to be excessively tired. Denies smoking marijuana States he hasn't drank Onset: Gradual Onset Date: 05/06/18 Onset Time: 11:00 Duration: Hour(s): Location: Reports: Abdomen Quality: Reports: Ache (Epigastrium right upper quadrant of the artery around to his right infrascapular area.), Sharp Severity: Moderate (Occasional colicky type pain) Improves with: Reports: None ( 7 out of 10) Worsens with: Reports: None Context: Reports: Other (Spontaneous occurrence of illness while at work.). Denies: Activity, Exercise, Lifting, Sick Contact, Trauma Associated Symptoms: Reports: Loss of Appetite, Malaise, Nausea/Vomiting, Weakness. 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: Acetaminophen (States he took Tylenol but his history suggests that he is allergic to it.) Right Upper Abdomen Pain Score (Numeric/FACES): 10 - Related Data Allergies Allergy/AdvReac Type Severity Reaction Status Date / Time acetaminophen Allergy Nausea Verified 05/07/18 07:41 amoxicillin [From Augmentin] Allergy Rash Verified 05/07/18 07:41 clavulanic acid Allergy Rash Verified 05/07/18 07:41 [From Augmentin] Iodinated Contrast- Oral and Allergy Sneezing Verified 05/07/18 07:41 IV Dye Home Meds: Home Meds Dicyclomine [Bentyl] 20 mg PO Q6H PRN #5 tablet 05/07/18 [Rx] Ondansetron [Zofran] 4 mg BUCCAL Q6H PRN #5 tab 05/07/18 [Rx] Past Medical History - Past Health History Medical/Surgical History: Denies Medical/Surgical History HEENT History: Reports: Other (See Below) Other HEENT History: fractured nose and re set - Past Surgical History HEENT Surgical History: Reports: Oral Surgery Social & Family History - Tobacco Use Smoking Status *Q: Current Every Day Smoker Tobacco Use Within Last Twelve Months: Cigarettes Years of Tobacco use: 9 Packs/Tins Daily: 1 - Caffeine Use Caffeine Use: Reports: Energy Drinks, Soda - Recreational Drug Use Recreational Drug Use: No - Living Situation & Occupation Living situation: Reports: Single Occupation: Employed ED ROS GENERAL - Review of Systems Review Of Systems: See Below Constitutional: Reports: No Symptoms HEENT: Reports: No Symptoms Respiratory: Reports: No Symptoms Cardiovascular: Reports: No Symptoms Endocrine: Reports: No Symptoms GI/Abdominal: Reports: No Symptoms : Reports: No Symptoms Musculoskeletal: Reports: No Symptoms Skin: Reports: No Symptoms Neurological: Reports: No Symptoms Psychiatric: Reports: No Symptoms Hematologic/Lymphatic: Reports: No Symptoms Immunologic: Reports: No Symptoms ED EXAM, GI/ABD - Physical Exam Exam: See Below Exam Limited By: Altered Mental Status (Seems to be falling asleep several times during interview had to wake him up to get an interview and examination completed.) General Appearance: Alert, Other (Appears facially flushed and sunburn.) Eyes: Bilateral: Normal Appearance (No jaundice.) Throat/Mouth: Other Head: Atraumatic, Normocephalic Neck: Normal Inspection, Supple, Non-Tender, Full Range of Motion. No: Lymphadenopathy (L), Lymphadenopathy (R) Respiratory/Chest: No Respiratory Distress, Lungs Clear, Normal Breath Sounds, Chest Non-Tender Cardiovascular: Normal Peripheral Pulses, Regular Rate, Rhythm, No Edema, No Murmur, No Rub GI/Abdominal Exam: No Organomegaly, No Abnormal Bruit, No Mass, Pelvis Stable, Guarding, Tender, Abnormal Bowel Sounds (Decreased bowel sounds from normal although they are present.). No: Rigid (Tenderness epigastrium and right upper quadrant but also right mid abdomen. Appears to be guarding without rebound.), Rebound Back Exam: Normal Inspection, Full Range of Motion. No: CVA Tenderness (L), CVA Tenderness (R) Extremities: Normal Inspection, Normal Range of Motion, Non-Tender, No Pedal Edema Neurological: Oriented, Normal Cognition, Normal Gait, Other. No: No Motor/ Sensory Deficits, Inattentive (Appears lethargic.), Confused, Disoriented, Slow to Respond, Unresponsive, Abnormal Reflexes Psychiatric: Normal Affect Skin Exam: Warm, Dry, Intact, Normal Color, No Rash Course - Vital Signs Last Recorded V/S: Last Vital Signs Temp 36.9 C 05/07/18 07:36 Pulse 85 05/07/18 07:36 Resp 13 05/07/18 07:36 BP 136/78 05/07/18 07:36 Pulse Ox 95 05/07/18 07:36 - Orders/Labs/Meds Orders: Active Orders 24 hr Category Date Time Status Abdomen 1V Flat [CR] Stat Exams 05/07/18 08:00 Taken DRUG SCREEN, URINE [URCHEM] Stat Lab 05/07/18 07:59 Ordered URINALYSIS W/O MICROSCOPIC [UA W/O MICROSCOPIC] [URIN] Lab 05/07/18 07:59 Ordered Stat Dextrose 5%-0.9% NaCl [Dextrose 5%-Normal Saline] 1,000 Med 05/07/18 08:00 Active ml IV ASDIRECTED Dextrose 5%-Lactated Ringers 1,000 ml Med 05/07/18 10:30 Active IV ASDIRECTED Ketorolac [Toradol] Med 05/07/18 08:00 Active 30 mg IVPUSH ONETIME Medication Orders Dextrose/Sodium Chloride (Dextrose 5%-Normal Saline) 1,000 mls @ 999 mls/hr IV ASDIRECTED ALISHA Last Admin: 05/07/18 08:19 Dose: 999 mls/hr Dextrose/Lactated Ringer's (Dextrose 5%-Lactated Ringers) 1,000 mls @ 999 mls/ hr IV ASDIRECTED ALISHA Last Admin: 05/07/18 10:34 Dose: 999 mls/hr Ketorolac Tromethamine (Toradol) 30 mg IVPUSH ONETIME ALISHA Last Admin: 05/07/18 08:44 Dose: 30 mg Labs: Laboratory Tests 05/07/18 05/07/18 05/07/18 Range/Units 08:00 08:00 08:00 WBC 12.52 H (4.23-9.07) K/mm3 RBC 5.55 (4.63-6.08) M/mm3 Hgb 17.8 H (13.7-17.5) gm/L Hct 48.8 (40.1-51.0) % MCV 87.9 (79.0-92.2) fl MCH 32.1 (25.7-32.2) pg MCHC 36.5 H (32.2-35.5) g/dl RDW Std Deviation 39.8 (35.1-43.9) fL Plt Count 337 (163-337) K/mm3 MPV 9.0 L (9.4-12.3) fl Neutrophils % (Manual) 85 H (40-60) % Band Neutrophils % 0 (0-10) % Lymphocytes % (Manual) 7 L (20-40) % Atypical Lymphs % 0 % Monocytes % (Manual) 8 (2-10) % Eosinophils % (Manual) 0 L (0.8-7.0) % Basophils % (Manual) 0 L (0.2-1.2) Platelet Estimate Adequate RBC Morph Comment Normal Sodium 136 (136-145) mEq/L Potassium 3.2 L (3.5-5.1) mEq/L Chloride 94 L (98-107) mEq/L Carbon Dioxide 29 (21-32) mEq/L Anion Gap 16.2 H (5-15) BUN 31 H (7-18) mg/dL Creatinine 1.3 (0.7-1.3) mg/dL Est Cr Clr Drug Dosing 90.10 mL/min Estimated GFR (MDRD) > 60 (>60) mL/min BUN/Creatinine Ratio 23.8 H (14-18) Glucose 154 H (74-106) mg/dL Lactic Acid (0.4-2.0) mmol/L Calcium 9.5 (8.5-10.1) mg/dL Total Bilirubin 2.1 H (0.2-1.0) mg/dL AST 27 (15-37) U/L ALT 30 (16-63) U/L Alkaline Phosphatase 93 (46-116) U/L C-Reactive Protein 1.5 H* (<1.0) mg/dL Total Protein 9.0 H (6.4-8.2) g/dl Albumin 5.2 H (3.4-5.0) g/dl Globulin 3.8 gm/dL Albumin/Globulin Ratio 1.4 (1-2) Lipase 85 (73-393) U/L Ethyl Alcohol 0.00 (0.00) gm% Ketones 1.23 (0.0-0.3) mM 05/07/18 Range/Units 08:35 WBC (4.23-9.07) K/mm3 RBC (4.63-6.08) M/mm3 Hgb (13.7-17.5) gm/L Hct (40.1-51.0) % MCV (79.0-92.2) fl MCH (25.7-32.2) pg MCHC (32.2-35.5) g/dl RDW Std Deviation (35.1-43.9) fL Plt Count (163-337) K/mm3 MPV (9.4-12.3) fl Neutrophils % (Manual) (40-60) % Band Neutrophils % (0-10) % Lymphocytes % (Manual) (20-40) % Atypical Lymphs % % Monocytes % (Manual) (2-10) % Eosinophils % (Manual) (0.8-7.0) % Basophils % (Manual) (0.2-1.2) Platelet Estimate RBC Morph Comment Sodium (136-145) mEq/L Potassium (3.5-5.1) mEq/L Chloride (98-107) mEq/L Carbon Dioxide (21-32) mEq/L Anion Gap (5-15) BUN (7-18) mg/dL Creatinine (0.7-1.3) mg/dL Est Cr Clr Drug Dosing mL/min Estimated GFR (MDRD) (>60) mL/min BUN/Creatinine Ratio (14-18) Glucose (74-106) mg/dL Lactic Acid 1.0 (0.4-2.0) mmol/L Calcium (8.5-10.1) mg/dL Total Bilirubin (0.2-1.0) mg/dL AST (15-37) U/L ALT (16-63) U/L Alkaline Phosphatase (46-116) U/L C-Reactive Protein (<1.0) mg/dL Total Protein (6.4-8.2) g/dl Albumin (3.4-5.0) g/dl Globulin gm/dL Albumin/Globulin Ratio (1-2) Lipase (73-393) U/L Ethyl Alcohol (0.00) gm% Ketones (0.0-0.3) mM Meds: Medications Generic Name Dose Route Start Last Admin Trade Name Freq PRN Reason Stop Dose Admin Dextrose/Sodium Chloride 1,000 mls @ 999 mls/hr 05/07/18 08:00 05/07/18 08:19 Dextrose 5%-Normal Saline IV 999 mls/hr ASDIRECTED ALISHA Administration Dextrose/Lactated Ringer's 1,000 mls @ 999 mls/hr 05/07/18 10:30 05/07/18 10: 34 Dextrose 5%-Lactated Ringers IV 999 mls/hr ASDIRECTED ALISHA Administration Ketorolac Tromethamine 30 mg 05/07/18 08:00 05/07/18 08:44 Toradol IVPUSH 30 mg ONETIME ALISHA Administration Discontinued Medications Generic Name Dose Route Start Last Admin Trade Name Freq PRN Reason Stop Dose Admin Hydromorphone HCl 0.5 mg 05/07/18 07:57 05/07/18 08:22 Dilaudid IVPUSH 05/07/18 07:58 0.5 mg ONETIME ONE Administration Hydromorphone HCl 0.5 mg 05/07/18 10:19 05/07/18 10:37 Dilaudid IVPUSH 05/07/18 10:20 0.5 mg ONETIME ONE Administration Metoclopramide HCl 10 mg 05/07/18 07:57 08/31/18 08:20 Reglan IVPUSH 08/31/18 07:58 10 mg ONETIME ONE Administration - Radiology Interpretation Free Text/Narrative:: 19-year-old male presents the ED with reported epigastric right upper quadrant abdominal pain with recurrent nausea and vomiting throughout the last 20 hours. Emesis is primarily been bilious. No previous similar problems. No previous abdominal surgery. States he is walking hunched over tart to stand fully erect. He is afebrile on examination. 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 Was working well on into the night and appears to be excessively tired had to wake him up from sleep to get a history and physical exam. He is guarding on palpation of the epigastrium and right upper quadrant of the abdomen. Questionable whether he could have cholelithiasis. Less likely chance of appendicitis. Previous abdominal surgery. Clinically he appears to be volume depleted. She denies alcohol or street drug use particularly marijuana. Plan Reglan 10 mg IV with Dilaudid 0.5 mg IV and Toradol 30 mg IV for pain relief. His history suggests that he is allergic to both oral and IV contrast media which would be highly unlikely. One view of the abdomen will be performed with routine labs including a serum lipase will decide on whether or not he needs a CT of the head without contrast based on above results. - Re-Assessments/Exams Free Text/Narrative Re-Assessment/Exam: 05/07/18 09:15 Labs reveal an elevated white count at 12.52 with a left shift of 85% neutrophils and no bands. Hemoglobin is elevated at 17.8 with hematocrit of 48.8 suggesting some degree of hemoconcentration. Platelet count is 337,000. Sodium was 136 with a potassium of 3.2. Chloride is 94 with a bicarbonate of 29. Anion gap mildly elevated at 16.2. BUN is 31. Creatinine is 1.3. GFR is greater than 60. Glucose is 154. Lactic acid is 1.0. Calcium is 9.5 with a total bilirubin of 2.1. AST is 27 with an ALT of 30. Alk phosphatase is 93. C- reactive protein is 1.5. Total protein is elevated at 9.0 with an albumin fraction of 5.2 again suggesting volume depletion. Blood alcohol is currently 0.00. KUB reveals increased stool throughout the right hemicolon particularly up underneath the hepatic flexure. No signs of bowel obstruction identified. Due to elevated labs and concern for possible appendicitis he will be sent for CT of the abdomen and pelvis without IV or oral contrast. 05/07/18 10:20 on my review of the CT of the abdomen and pelvis I could find no abnormalities. Liver appears homogeneous. Gallbladder is mildly dilated without thickening of the davidson and no gallstones evident. Pancreas appears to be within normal limits. Spleen is normal size. Both kidneys appear to be within normal limits without obstruction. There is increased stool throughout the right hemicolon particularly in the hepatic flexure. Difficult diverticula identified. The appendix is visualized and appears to be normal without any periappendiceal infiltrate. No hernias of the abdominal wall were appreciated. Patient is still having significant discomfort. Will repeat Dilaudid 0.5 mg IV. Will await formal radiology report on the CT. IV will be continued at D5 LR at 999 mils per hour 05/07/18 11:06 as he continues to have right upper quadrant abdominal discomfort compatible with biliary colic and ultrasound of his gallbladder will be ordered. 05/07/18 12:37 ultrasound of the gallbladder proved to be normal to with no stones evident. Small cyst noted within the left kidney which is of no consequence 8 mm in size. Patient will therefore be discharged home with provisional diagnosis of acute gastroenteritis with nausea and vomiting. He has had IV fluids to rehydrate him. He will be placed on Zofran 4 mg sublingual every 4-6 hours needed for nausea relief. Total 20 mg every 6 hours needed for relief of abdominal pain. Diet to be clear fluids. Primarily Gatorade or Powerade today. Advance to soup later today. Given to excuse him from work today and tomorrow. Departure - Departure Time of Disposition: 12:38 Disposition: Home, Self-Care 01 Condition: Fair Clinical Impression: Volume depletion, Nausea and vomiting in adult patient Abdominal pain Qualifiers: Abdominal location: left lower quadrant Qualified Code(s): R10.32 - Left lower quadrant pain - Discharge Information *PRESCRIPTION DRUG MONITORING PROGRAM REVIEWED*: No *COPY OF PRESCRIPTION DRUG MONITORING REPORT IN PATIENT ABIEL: No Prescriptions: Dicyclomine [Bentyl] 20 mg PO Q6H PRN #5 tablet PRN Reason: Abdominal cramps/diarrhea Ondansetron [Zofran] 4 mg BUCCAL Q6H PRN #5 tab PRN Reason: nausea or vomiting Instructions: Nausea and Vomiting, Adult, Abdominal Pain, Adult, [id number] Referrals: PCP,None [Primary Care Provider] - Forms: ED Department Discharge, ED Return to Work/School Form Additional Instructions: Evaluation the emergency room today in regards to presentation to the ED with acute onset of epigastric abdominal pain rating to to your back with been development of recurrent nausea and vomiting. Clinically this appears to be due to viral gastroenteritis. CT of your abdomen and pelvis was performed due to pain in the right hemiabdomen on examination. It reveals a normal appendix and no sign of gallbladder related illness. Pancreas also is within normal limits. Ultrasound of the gallbladder also proved to be negative for any evidence of gallbladder related illness. Lab work also proved to be normal other than revealing mild dehydration. This was corrected with intravenous fluids while in the ED. You're treated with pain medication and intravenous medication for nausea relief. Treatment at home is to be Zofran 4 mg under the tongue every 4- 6 hours as needed for relief of nausea. Bentyl 20 mg tablet by mouth every 6 hours needed for relief of abdominal pain. Suggest diet to be primarily clear fluids such as Gatorade or Powerade today. May advance to crackers and then to a broth soup or turkey rice/chicken noodle soup tonight. Suggest no dairy products or alpha juice until you know for sure you're not going to develop diarrhea over the next 12 hours.Off work today and tomorrow until you are able to regain ability to eat a normal diet. - My Orders Last 24 Hours: My Active Orders 05/07/18 07:59 DRUG SCREEN, URINE [URCHEM] Stat URINALYSIS W/O MICROSCOPIC [UA W/O MICROSCOPIC] [URIN] Stat 05/07/18 08:00 Abdomen 1V Flat [CR] Stat Dextrose 5%-0.9% NaCl [Dextrose 5%-Normal Saline] 1,000 ml IV ASDIRECTED Ketorolac [Toradol] 30 mg IVPUSH ONETIME 05/07/18 10:30 Dextrose 5%-Lactated Ringers 1,000 ml IV ASDIRECTED - Assessment/Plan Last 24 Hours: My Active Orders 05/07/18 07:59 DRUG SCREEN, URINE [URCHEM] Stat URINALYSIS W/O MICROSCOPIC [UA W/O MICROSCOPIC] [URIN] Stat 05/07/18 08:00 Abdomen 1V Flat [CR] Stat Dextrose 5%-0.9% NaCl [Dextrose 5%-Normal Saline] 1,000 ml IV ASDIRECTED Ketorolac [Toradol] 30 mg IVPUSH ONETIME 05/07/18 10:30 Dextrose 5%-Lactated Ringers 1,000 ml IV ASDIRECTED
[2018-05-07] MEDS ORDERED: Dextrose 5%-Lactated Ringers 1,000 ML IV SCH (10:30)
--- NOTE | 2018-05-07 10:32 | CT ---
CT abdomen and pelvis Technique: Multiple axial sections were obtained from above the dome of the diaphragm inferiorly through the pubic symphysis. Intravenous and oral contrast was not utilized. Findings: Small cyst is noted within the left kidney measuring about 8 mm. No abnormal calcifications are seen within the kidneys. No ureteral dilatation or ureteral stone is seen. Visualized lung bases are clear. Liver shows no focal abnormality. Spleen appears normal. Adrenal glands show no nodule. Pancreas is within normal limits. Gallbladder contains no calcified gallstones. Aorta shows no aneurysmal dilatation. No retroperitoneal adenopathy or mesenteric abnormalities are seen. No pelvic mass or adenopathy is seen. Appendix is felt to be visualized and appears normal in size. No inflammatory change or free fluid is seen. Bone window settings were reviewed which appears within normal limits for the patient's age. Impression: 1. Small cyst within the left kidney. 2. No additional abnormality is appreciated on noncontrast CT study of the abdomen and pelvis. Diagnostic code #2
--- NOTE | 2018-05-07 12:00 | US ---
Limited abdominal ultrasound: Multiple real-time images were obtained of the upper right abdomen. Comparison: No prior ultrasound exam, previous CT exam performed earlier on the same day (09:43 AM). Liver shows no focal parenchymal abnormality. Gallbladder contains no gallstones. No gallbladder wall thickening or biliary duct dilatation is seen. Right kidney shows no hydronephrosis or mass and has a length of 12.7 cm. Pancreas is incompletely seen. Visualized portions of the pancreas are within normal limits. Inferior vena cava shows normal hepatopedal flow. Impression: 1. No abnormality is identified on right upper quadrant abdominal ultrasound. Diagnostic code #1
== END 2018-05-07 13:18 | disposition home or self-care (01) ==
LOC: JD.ED 07:27
DX: E86.9 Volume depletion, unspecified (principal); R10.11 Right upper quadrant pain; R10.31 Right lower quadrant pain; R11.2 Nausea with vomiting, unspecified; N28.1 Cyst of kidney, acquired; F17.210 Nicotine dependence, cigarettes, uncomplicated; Z91.041 Radiographic dye allergy status; Z88.6 Allergy status to analgesic agent; Z88.1 Allergy status to other antibiotic agents
CPT/HCPCS: 36415; 74018; 74176; 76705; 80053; 82009; 83605; 83690; 85007; 85027; 86140; 96361; 96374; 96375; 96376; 99285; G0480; J1170; J1885; J2765; J7042

== ENCOUNTER 2018-05-07 17:33 | Emergency (ER) | payer BC ==
[2018-05-07 17:41] VITALS: BP 123/84
--- NOTE | 2018-05-07 20:20 | EDM.PDOC ---
ED HPI GENERAL MEDICAL PROBLEM - General Chief Complaint: Respiratory Problem Time Seen by Provider: 05/07/18 18:10 Source of Information: Reports: Patient, Significant Other History Limitations: Reports: No Limitations - History of Present Illness INITIAL COMMENTS - FREE TEXT/NARRATIVE: 27-year-old male who presented initially with a chief complaint respiratory distress. EMS report from the field say the patient was found cyanotic and apneic. When they arrived the patient was intubated. He self extubated in the EMS rig prior to arrival. He did regain consciousness and breathing with dose of Narcan. Patient is currently not short of breath and has no chest pain. He is however nauseous and has nonbloody nonbilious vomiting. This started only after he was given Narcan. Chest Pain Score (Numeric/FACES): 6 - Related Data Allergies Allergy/AdvReac Type Severity Reaction Status Date / Time acetaminophen Allergy Nausea Verified 05/07/18 17:35 amoxicillin [From Augmentin] Allergy Rash Verified 05/07/18 17:35 clavulanic acid Allergy Rash Verified 05/07/18 17:35 [From Augmentin] Iodinated Contrast- Oral and Allergy Sneezing Verified 05/07/18 17:35 IV Dye Home Meds: Home Meds Dicyclomine [Bentyl] 20 mg PO Q6H PRN #5 tablet 05/07/18 [Rx] Ondansetron [Zofran] 4 mg BUCCAL Q6H PRN #5 tab 05/07/18 [Rx] Past Medical History - Past Health History Medical/Surgical History: Denies Medical/Surgical History HEENT History: Reports: Other (See Below) Other HEENT History: fractured nose and re set - Past Surgical History HEENT Surgical History: Reports: Oral Surgery Social & Family History - Tobacco Use Smoking Status *Q: Current Every Day Smoker Years of Tobacco use: 4 Packs/Tins Daily: 0.5 - Caffeine Use Caffeine Use: Reports: Coffee, Energy Drinks, Soda - Recreational Drug Use Recreational Drug Use: No - Living Situation & Occupation Living situation: Reports: Single Occupation: Employed ED ROS GENERAL - Review of Systems Review Of Systems: See Below Constitutional: Reports: No Symptoms HEENT: Reports: No Symptoms Respiratory: Reports: No Symptoms Cardiovascular: Reports: No Symptoms Endocrine: Reports: No Symptoms GI/Abdominal: Reports: Nausea, Vomiting Musculoskeletal: Reports: No Symptoms Skin: Reports: No Symptoms Neurological: Reports: No Symptoms Psychiatric: Reports: No Symptoms ED EXAM, GENERAL - Physical Exam Exam: See Below Exam Limited By: No Limitations General Appearance: Alert, No Apparent Distress Eye Exam: Bilateral Eye: EOMI, PERRL Respiratory/Chest: No Respiratory Distress, Lungs Clear, Normal Breath Sounds Cardiovascular: Normal Peripheral Pulses, Other (Slightly tachycardic rate regular rhythm) GI/Abdominal: Normal Bowel Sounds, Soft, Non-Tender, No Distention Back Exam: Normal Inspection Extremities: Normal Inspection, Normal Range of Motion Neurological: Alert, Oriented, CN II-XII Intact, Normal Cognition, No Motor/ Sensory Deficits Psychiatric: Normal Affect, Normal Mood Skin Exam: Warm, Dry, Intact Course - Vital Signs Last Recorded V/S: Last Vital Signs Temp 36.9 C 05/07/18 17:35 Pulse 90 05/07/18 17:35 Resp 13 05/07/18 17:35 BP 123/84 05/07/18 17:35 Pulse Ox 100 05/07/18 17:35 - Orders/Labs/Meds Labs: Laboratory Tests 05/07/18 05/07/18 Range/Units 17:55 19:15 Urine Opiates Screen Presumptive positive H (NEGATIVE) Ur Buprenorphine Scrn Negative (NEGATIVE) Ur Oxycodone Screen Negative (NEGATIVE) Urine Methadone Screen Negative (NEGATIVE) Ur Propoxyphene Screen Negative (NEGATIVE) Ur Barbiturates Screen Negative (NEGATIVE) Ur Tricyclics Screen Negative (NEGATIVE) Ur Phencyclidine Scrn Negative (NEGATIVE) Ur Amphetamine Screen Negative (NEGATIVE) U Methamphetamines Scrn Negative (NEGATIVE) U Benzodiazepines Scrn Negative (NEGATIVE) U Cocaine Metab Screen Negative (NEGATIVE) U Marijuana (THC) Screen Negative (NEGATIVE) Hepatitis C Antibody Negative (NEGATIVE) HIV-1 Ab Rapid Screen Negative (NEGATIVE) - Re-Assessments/Exams Free Text/Narrative Re-Assessment/Exam: This is a 19-year-old male who presents with shortness of breath usually respiratory arrest in the field. He was resuscitated with Narcan as well as endotracheal intubation and self extubated in the rate prior to arrival. Upon evaluation here is slightly tachycardic and nauseous with some nonbloody nonbilious vomiting but otherwise well. He is observed for a few hours in the emergency department required no further Narcan. I had a long extensive conversation with the patient about what happened today. He was seen in the members part this morning for abdominal pain with no clear cause after an extensive workup. He was given Dilaudid during his stay here. And the patient states that he went home and took several oxycodone which were prescribed by another physician. He takes is for chronic knee pain. I told the patient that his respiratory arrest is most likely secondary to this overdose opioids. Patient adamantly denied any self-harm. He has no suicidal ideation. Of note blow down helper did have needlestick from the patient. Patient consented to HIV and hepatitis testing. This is negative. She was given various extensive precautions regarding further opiate use or abuse. He was given prescriptions today in the emergency department. He was discharged home in good clinical condition and given return precautions. Departure - Departure Time of Disposition: 20:20 Disposition: Home, Self-Care 01 Condition: Good Clinical Impression: Opioid overdose Qualifiers: Encounter type: initial encounter Injury intent: accidental or unintentional Qualified Code(s): T40.2X1A - Poisoning by other opioids, accidental ( unintentional), initial encounter - Discharge Information *PRESCRIPTION DRUG MONITORING PROGRAM REVIEWED*: No *COPY OF PRESCRIPTION DRUG MONITORING REPORT IN PATIENT ABIEL: No Instructions: Accidental Overdose Referrals: PCP,None [Primary Care Provider] - Forms: ED Department Discharge Additional Instructions: You were seen in the ED today for difficulty breathing. You improved with Narcan which reverses opioids. You most likely took too much opioid by taking the roxicodone when you went home, you had already received dilaudid while in the ED this AM. It is safe for you to go home right now. Your nausea right now is most likely due to the Narcan. You may continue to take dicyclomine and zofran at home.
== END 2018-05-07 20:56 | disposition home or self-care (01) ==
LOC: JD.ED 17:33
DX: T40.2X1A Poisoning by other opioids, accidental (unintentional), initial encounter (principal); F17.210 Nicotine dependence, cigarettes, uncomplicated; Z88.1 Allergy status to other antibiotic agents; Z91.041 Radiographic dye allergy status; Z79.899 Other long term (current) drug therapy
CPT/HCPCS: 80306; 86803; 87340; 99285; G0433

== ENCOUNTER 2019-01-01 15:52 | Emergency (ER) | payer BC ==
[2019-01-01 16:04] VITALS: BP 134/104
--- NOTE | 2019-01-01 16:29 | EDM.PDOC ---
ED HPI GENERAL MEDICAL PROBLEM - General Chief Complaint: Respiratory Problem Stated Complaint: COUGH/RESPIRATORY ISSUES Time Seen by Provider: 01/01/19 16:03 Source of Information: Reports: Patient, RN Notes Reviewed History Limitations: Reports: No Limitations - History of Present Illness INITIAL COMMENTS - FREE TEXT/NARRATIVE: The patient states that he has had a cough productive of greenish sputum, chest congestion, chest pain whenever he coughs, insomnia, and a headache for the past 2-3 days. He has felt short of breath, and feels like he has been wheezing , including now. He has not had a fever. He denies having nasal or sinus congestion, rhinorrhea, ear pain or pressure, decreased hearing, or sore throat. No prior similar symptoms. The patient states that he has taken Tylenol, but no other [id number] or home remedies. The patient states that there are several coworkers who are similarly ill. The patient's PCP is Sharyn Potter. The patient is unsure if he received an influenza vaccine this season. Headache Pain Score (Numeric/FACES): 9 - Related Data Allergies Allergy/AdvReac Type Severity Reaction Status Date / Time acetaminophen Allergy Nausea Verified 05/07/18 17:35 amoxicillin [From Augmentin] Allergy Rash Verified 05/07/18 17:35 clavulanic acid Allergy Rash Verified 05/07/18 17:35 [From Augmentin] Iodinated Contrast- Oral and Allergy Sneezing Verified 05/07/18 17:35 IV Dye Home Meds: Home Meds Codeine/Promethazine [Phenergan with Codeine] 5 ml PO BEDTIME PRN #35 cup [Rx] Past Medical History Musculoskeletal History: Reports: Fracture (nasal bone) - Past Surgical History HEENT Surgical History: Reports: Naso-Sinus Surgery (setting nasal fracture), Oral Surgery (wisdom teeth extraction) Social & Family History - Tobacco Use Smoking Status *Q: Former Smoker Years of Tobacco use: 2 Packs/Tins Daily: 1 Packs/Tins Daily Comment: Quit 2009 - Caffeine Use Caffeine Use: Reports: Coffee, Energy Drinks - Alcohol Use Alcohol Use History: Yes Alcohol Use Frequency: Socially - Recreational Drug Use Recreational Drug Use: No - Living Situation & Occupation Living situation: Reports: Single, with Significant Other (Girlfriend) 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 ED EXAM, GENERAL - Physical Exam Exam: See Below Exam Limited By: No Limitations General Appearance: Alert, WD/WN, No Apparent Distress Eye Exam: Bilateral Eye: EOMI, Nystagmus Ears: Normal External Exam, Normal Canal, Hearing Grossly Normal, Normal TMs Nose: Normal Inspection, Normal Mucosa, No Blood Throat/Mouth: Normal Inspection, Normal Lips, Normal Teeth, Normal Gums, Normal Oropharynx, Normal Voice, No Airway Compromise Head: Atraumatic, Normocephalic Neck: Normal Inspection, Supple, Non-Tender, Full Range of Motion. No: Lymphadenopathy (L), Lymphadenopathy (R) Respiratory/Chest: No Respiratory Distress, Lungs Clear, Normal Breath Sounds, No Accessory Muscle Use. No: Decreased Breath Sounds, Crackles, Rhonchi, Wheezing, Stridor, Prolonged Expiration Cardiovascular: Normal Peripheral Pulses, No Edema, No Gallop, No JVD, No Murmur , No Rub, Tachycardia (regular) Peripheral Pulses: 4+: Radial (L), Radial (R) GI/Abdominal: Normal Bowel Sounds, Soft, Non-Tender, No Organomegaly, No Distention, No Abnormal Bruit, No Mass (Male) Exam: Deferred Rectal (Males) Exam: Deferred Back Exam: Normal Inspection, Full Range of Motion, NT Extremities: Normal Inspection, Normal Range of Motion, No Pedal Edema, Normal Capillary Refill Neurological: Alert, Oriented, Normal Cognition, No Motor/Sensory Deficits Psychiatric: Normal Affect Skin Exam: Warm, Dry, Intact, Normal Color, No Rash Course - Vital Signs Last Recorded V/S: Last Vital Signs Temp 36.5 C 01/01/19 16:01 Pulse 103 H 01/01/19 16:01 Resp 24 H 01/01/19 16:01 BP 134/104 H 01/01/19 16:01 Pulse Ox 96 01/01/19 16:01 - Re-Assessments/Exams Free Text/Narrative Re-Assessment/Exam: 01/01/19 16:28 The patient likely has a viral URI with cough, however, I have ordered an influenza swab to rule out influenza, since he would potentially be able to be treated with Tamiflu if positive, and a chest x-ray to rule out pneumonia. I do not need blood work unless his chest x-ray returns abnormal. 01/01/19 17:05 2-view chest radiograph appears to be grossly normal. The cardiac silhouette is within normal limits. No pulmonary vascular congestion. No pleural effusions. No focal infiltrate. No pneumothorax. Formal read per the Radiologist pending. 01/01/19 17:27 Test results discussed with the patient. His influenza swab is negative. The patient appears to have a viral URI. I explained that there are no medicines to get rid of the URI, that will have to run its course. I will, however, prescribe some codeine with promethazine cough syrup to help the patient get some sleep and help decrease his chest discomfort when he coughs. The patient is aware that he is not permitted to drive or operate heavy machinery if he is taking this medicine. If his symptoms persist to the end of this week, I would like him to follow-up with his PCP. Departure - Departure Time of Disposition: 17:29 Disposition: Home, Self-Care 01 Condition: Good Clinical Impression: Viral URI with cough - Discharge Information *PRESCRIPTION DRUG MONITORING PROGRAM REVIEWED*: Not Applicable *COPY OF PRESCRIPTION DRUG MONITORING REPORT IN PATIENT ABIEL: Not Applicable Prescriptions: Codeine/Promethazine [Phenergan with Codeine] 5 ml PO BEDTIME PRN #35 cup PRN Reason: Cough Instructions: Upper Respiratory Infection, Adult, [id number] Referrals: Sharyn Potter, [employer]OMIST [ED Midlevel Provider] - Forms: ED Department Discharge Additional Instructions: You were seen in the emergency room for a cough with greenish sputum, chest congestion and chest pain when you cough, headache, and difficulty sleeping, all for the past 2-3 days. Workup in the ER included an influenza swab and a chest x-ray. Both were completely normal. You do not have influenza, and you do not have pneumonia. Based on your history, physical exam, and ER test, you are most likely suffering from a viral URI = common cold. Unfortunately, there are no medicines to get rid of a common cold - it will have to run its course. You had been prescribed the cough medicine codeine with promethazine. Take 5 mL at bedtime, to help you sleep and help with her chest discomfort. If you take this cough medicine, do not drive or operate heavy machinery for 10 hours afterwards. If your symptoms are still present by the end of this week, please follow-up with your PCP, Sharyn Potter. If any other problems, please do not hesitate to return to the ER.
--- NOTE | 2019-01-02 12:13 | CR ---
Chest: Two views of the chest were obtained. Comparison: No prior chest x-ray. Heart size and mediastinum are normal. Lungs are clear. Bony structures are unremarkable. Impression: 1. Nothing acute is seen on two-view chest x-ray. Diagnostic code #1
== END 2019-01-01 18:00 | disposition home or self-care (01) ==
LOC: JD.ED 15:52
DX: J06.9 Acute upper respiratory infection, unspecified (principal); Z88.1 Allergy status to other antibiotic agents; Z87.891 Personal history of nicotine dependence
CPT/HCPCS: 71046; 71046-26; 87804; 99283; 99283-25

== ENCOUNTER 2019-08-18 16:54 | Emergency (ER) | payer BC ==
[2019-08-18 17:04] VITALS: BP 143/100; PULSE 106
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
[2019-08-18] MEDS ORDERED: ALPRAZolam 1 MG Tab PO ONE ×2 (17:30→17:36)
== END 2019-08-18 17:54 | disposition home or self-care (01) ==
LOC: JD.ED 16:54
DX: F41.9 Anxiety disorder, unspecified (principal); F17.210 Nicotine dependence, cigarettes, uncomplicated; Z88.6 Allergy status to analgesic agent; Z88.0 Allergy status to penicillin; Z88.8 Allergy status to other drugs, medicaments and biological substances; Z91.041 Radiographic dye allergy status; Z79.899 Other long term (current) drug therapy
CPT/HCPCS: 99281; A9270; 99283

== ENCOUNTER 2019-11-17 18:27 | Emergency (ER) | payer BC | END 2019-11-17 19:10 | LOC: JD.ED 18:27 | DX: Z53.20 Procedure and treatment not carried out because of patient's decision for unspecified reasons (principal) ==

== ENCOUNTER 2020-02-07 15:29 | Emergency (ER) | payer BC ==
--- NOTE | 2020-02-07 15:54 | EDM.PDOC ---
ED HPI GENERAL MEDICAL PROBLEM - General Chief Complaint: Lower Extremity Injury/Pain Stated Complaint: BACK AND LT FOOT INJURY Time Seen by Provider: 02/07/20 15:43 Source of Information: Reports: Patient History Limitations: Reports: No Limitations - History of Present Illness INITIAL COMMENTS - FREE TEXT/NARRATIVE: The patient presents with upper and lower back pain and left foot pain after a fall. He was at work and on a ladder and he fell backward and hurt his left foot, low back and upper back. He did not hit his head and he has no neck pain. He has no chest pain or abdominal pain. Onset: Sudden Duration: Minutes: Location: Reports: Back, Lower Extremity, Left (foot) Quality: Reports: Sharp Severity: Severe Improves with: Reports: Immobilization Worsens with: Reports: Movement Associated Symptoms: Reports: No Other Symptoms Left Ankle Pain Score (Numeric/FACES): 10 Lower Back Pain Score (Numeric/FACES): 10 - Related Data Allergies Allergy/AdvReac Type Severity Reaction Status Date / Time acetaminophen Allergy Nausea Verified 02/07/20 15:57 amoxicillin [From Augmentin] Allergy Rash Verified 02/07/20 15:57 clavulanic acid Allergy Rash Verified 02/07/20 15:57 [From Augmentin] Iodinated Contrast Media Allergy Sneezing Verified 02/07/20 15:57 [Iodinated Contrast- Oral and IV Dye] Home Meds: Home Meds ALPRAZolam [Alprazolam] 1 mg PO Q8H #18 tablet 08/18/19 [Rx] ALPRAZolam [Xanax] 1 mg PO TID PRN 08/18/19 [History] Methylphenidate [Ritalin] 10 mg PO TID 08/18/19 [History] Past Medical History - Past Health History Medical/Surgical History: Denies Medical/Surgical History HEENT History: Reports: Other (See Below) Other HEENT History: fractured nose and re set Musculoskeletal History: Reports: Fracture Neurological History: Reports: Seizure Psychiatric History: Reports: ADD, Anxiety - Past Surgical History HEENT Surgical History: Reports: Naso-Sinus Surgery, Oral Surgery Social & Family History - Family History Family Medical History: Unobtainable - Caffeine Use Caffeine Use: Reports: Coffee, Energy Drinks - Living Situation & Occupation Living situation: Reports: Single, with Significant Other (Girlfriend) 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) Review of Systems - Review of Systems Review Of Systems: See Below Constitutional: Reports: No Symptoms Eyes: Reports: No Symptoms Ears: Reports: No Symptoms Nose: Reports: No Symptoms Mouth/Throat: Reports: No Symptoms Respiratory: Reports: No Symptoms Cardiovascular: Reports: No Symptoms GI/Abdominal: Reports: No Symptoms Genitourinary: Reports: No Symptoms Musculoskeletal: Reports: Back Pain (Thoracic and lumbar spine pain), Other ( Left foot pain) ED EXAM, GENERAL - Physical Exam Exam: See Below Exam Limited By: No Limitations General Appearance: Alert, No Apparent Distress Ears: Normal External Exam Nose: Normal Inspection Head: Atraumatic, Normocephalic Neck: Normal Inspection Respiratory/Chest: No Respiratory Distress, Lungs Clear, Normal Breath Sounds Cardiovascular: Regular Rate, Rhythm, No Edema, No Murmur GI/Abdominal: Soft, Non-Tender, No Organomegaly, No Mass Back Exam: Other (Pain upon palpation to the upper left back and lumbar spine) Extremities: Other (Pain upon palpation to the left foot with good sensation and pulses. No edema was seen) Neurological: Alert, Oriented, No Motor/Sensory Deficits Course - Vital Signs Last Recorded V/S: Last Vital Signs Temp 97.3 F 02/07/20 15:49 Pulse 123 H 02/07/20 15:49 Resp 18 02/07/20 15:49 BP 136/73 02/07/20 15:49 Pulse Ox 95 02/07/20 15:49 - Orders/Labs/Meds Orders: Active Orders 24 hr Category Date Time Status Foot Comp Min 3V Lt [CR] Stat Exams 02/07/20 15:48 Taken Lumbar Spine 2 or 3V [CR] Stat Exams 02/07/20 15:48 Taken Thoracic Spine 2V [CR] Stat Exams 02/07/20 15:48 Taken - Re-Assessments/Exams Free Text/Narrative Re-Assessment/Exam: 02/07/20 15:53 I have ordered an x-ray of his thoracic and lumbar spine and left foot. 02/07/20 16:22 The x-rays all show not fractures. I will discharge him home. Departure - Departure Time of Disposition: 16:25 Disposition: Home, Self-Care 01 Condition: Good Clinical Impression: Fall Qualifiers: Encounter type: initial encounter Qualified Code(s): W19.XXXA - Unspecified fall, initial encounter Back contusion Qualifiers: Encounter type: initial encounter Laterality: unspecified laterality Qualified Code(s): S20.229A - Contusion of unspecified back wall of thorax, initial encounter Sprain of left foot Qualifiers: Encounter type: initial encounter Qualified Code(s): S93.602A - Unspecified sprain of left foot, initial encounter - Discharge Information *PRESCRIPTION DRUG MONITORING PROGRAM REVIEWED*: Not Applicable *COPY OF PRESCRIPTION DRUG MONITORING REPORT IN PATIENT ABIEL: Not Applicable Referrals: PCP,None [Primary Care Provider] - Forms: ED Department Discharge Additional Instructions: Ice the areas that hurt for 15 minutes 3 times per day. Take tylenol or motrin for pain. Please return if you are worse. Sepsis Event Note - Focused Exam Vital Signs: Vital Signs Temp Pulse Resp BP Pulse Ox 02/07/20 15:49 97.3 F 123 H 18 136/73 95 Date Exam was Performed: 02/07/20 Time Exam was Performed: 16:22 - My Orders Last 24 Hours: My Active Orders 02/07/20 15:48 Foot Comp Min 3V Lt [CR] Stat Lumbar Spine 2 or 3V [CR] Stat Thoracic Spine 2V [CR] Stat - Assessment/Plan Last 24 Hours: My Active Orders 02/07/20 15:48 Foot Comp Min 3V Lt [CR] Stat Lumbar Spine 2 or 3V [CR] Stat Thoracic Spine 2V [CR] Stat
[2020-02-07 15:57] VITALS: BP 136/73; PULSE 123
--- NOTE | 2020-02-08 06:34 | CR ---
Left foot: 3 views of the left foot were obtained. Comparison: No prior foot exam is available. No acute fracture, dislocation or other bony abnormality is seen. Impression: 1. No abnormality is appreciated on three-view left foot exam. Diagnostic code #1 This report was dictated in MDT
--- NOTE | 2020-02-08 06:35 | CR ---
Lumbar spine: AP, lateral and coned-down lateral views centered to the lumbosacral junction were obtained. Comparison: No prior lumbar spine imaging is available. Vertebral body heights and disc spaces are maintained. Pedicles are intact. Transverse and spinous processes are intact. No subluxation or fracture seen. Impression: 1. No abnormality is identified on three-view lumbar spine study. Diagnostic code #1 This report was dictated in MDT
--- NOTE | 2020-02-08 06:36 | CR ---
Thoracic spine: AP and lateral views of the thoracic spine were obtained. Comparison: No previous study. Minimal scoliosis is noted. Vertebral body heights are maintained. Pedicles are intact. No subluxation or fracture is seen. Impression: 1. Slight scoliosis. 2. 2 view thoracic spine study is otherwise unremarkable. Diagnostic code #2 This report was dictated in MDT
== END 2020-02-07 18:19 | disposition home or self-care (01) ==
LOC: JD.ED 15:29
DX: S93.602A Unspecified sprain of left foot, initial encounter (principal); S20.222A Contusion of left back wall of thorax, initial encounter; F41.9 Anxiety disorder, unspecified; Z79.899 Other long term (current) drug therapy; Z88.6 Allergy status to analgesic agent; Z88.1 Allergy status to other antibiotic agents; Z91.041 Radiographic dye allergy status; W11.XXXA Fall on and from ladder, initial encounter; Y99.0 Civilian activity done for income or pay
CPT/HCPCS: 72070; 72070-26; 72100; 72100-26; 73630-26-LT; 73630-LT; 80306; 99282; 99283-25

== ENCOUNTER 2020-02-08 18:32 | Emergency (ER) | payer BC ==
[2020-02-08 18:39] VITALS: BP 128/90; PULSE 117
--- NOTE | 2020-02-08 19:39 | EDM.PDOC ---
ED HPI GENERAL MEDICAL PROBLEM - General Chief Complaint: Behavioral/Psych Stated Complaint: LAW ENFORCEMENT Time Seen by Provider: 02/08/20 19:24 Source of Information: Reports: Patient, RN Notes Reviewed History Limitations: Reports: Intoxication (pt is sleeping at initial exam, but does arouse and answers questions appropriately when asked.) - History of Present Illness INITIAL COMMENTS - FREE TEXT/NARRATIVE: Patient is a 29-year-old male brought into the ED via [employer] police officers for a medical clearance exam. The patient was picked up at a local gas station , and they thought that he snorted some sort of narcotic medication. Patient denies illicit drug use, and states that he took his Xanax as prescribed, he states that he is prescribed 3 tablets, but did take 4, as he has been somewhat tired from work lately. Patient's speech is a little slurred, but does answer questions appropriately. He was found to be vitally stable at time of triage, pulse is 117, afebrile at 98 F, respiratory rate of 18/min, blood pressure is 128/90, and pulse ox is 94% on room air. Patient is in no obvious distress, and when asked questions he does answer appropriately. Patient states that he does have a friend that can give him a ride home. Patient is not complaining of anything other sick-like symptoms. He was evaluated in this ER yesterday, and had a urinalysis done and it was only positive for benzodiazepines. He was seen for foot pain initially. - Related Data Allergies Allergy/AdvReac Type Severity Reaction Status Date / Time acetaminophen Allergy Severe Nausea Verified 02/08/20 19:33 amoxicillin [From Augmentin] Allergy Severe Rash Verified 02/08/20 19:33 clavulanic acid Allergy Severe Rash Verified 02/08/20 19:33 [From Augmentin] Iodinated Contrast Media Allergy Severe Sneezing Verified 02/08/20 19:33 [Iodinated Contrast- Oral and IV Dye] Home Meds: Home Meds ALPRAZolam [Xanax] 1 mg PO TID PRN 08/18/19 [History] Methylphenidate [Ritalin] 10 mg PO TID 08/18/19 [History] Meloxicam 7.5 mg PO DAILY PRN #20 tablet 02/07/20 [Rx] Past Medical History HEENT History: Reports: Other (See Below) Other HEENT History: fractured nose and re set Musculoskeletal History: Reports: Fracture Neurological History: Reports: Seizure Psychiatric History: Reports: ADD, Addiction, Anxiety - Past Surgical History HEENT Surgical History: Reports: Naso-Sinus Surgery, Oral Surgery Social & Family History - Family History Family Medical History: Unobtainable - Caffeine Use Caffeine Use: Reports: Coffee, Energy Drinks, Soda - Living Situation & Occupation Living situation: Reports: Single, with Significant Other (Girlfriend) 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 - Physical Exam Exam: See Below Exam Limited By: Intoxication (pt is sleeping at inital exam, but does answer/ arouse appropriately) General Appearance: Alert, WD/WN, No Apparent Distress Eye Exam: Bilateral Eye: EOMI, Normal Inspection, PERRL Ears: Normal External Exam Nose: Normal Inspection Throat/Mouth: Normal Inspection, Normal Lips, Normal Teeth, Normal Gums, Normal Oropharynx, Normal Voice, No Airway Compromise Head Exam: Atraumatic, Normocephalic Neck: Normal Inspection Respiratory/Chest: No Respiratory Distress, Lungs Clear, Normal Breath Sounds, No Accessory Muscle Use, Chest Non-Tender Cardiovascular: Normal Peripheral Pulses, Regular Rate, Rhythm, No Murmur GI/Abdominal: Normal Bowel Sounds, Soft, Non-Tender, No Distention, No Mass Neuro Exam (Abbreviated): Alert, Oriented, Normal Cognition, Normal Gait (pt has a cautious, slower gait, but it is straight and can hold himself upright.), No Motor/Sensory Deficits Extremities: Normal Inspection, Normal Capillary Refill Psychiatric: Normal Affect, Normal Mood Skin Exam: Warm, Dry, Intact, Normal Color, No Rash Course - Vital Signs Last Recorded V/S: Last Vital Signs Temp 98 F 02/08/20 18:35 Pulse 117 H 02/08/20 18:35 Resp 18 02/08/20 18:35 BP 128/90 02/08/20 18:35 Pulse Ox 94 L 02/08/20 18:35 - Re-Assessments/Exams Free Text/Narrative Re-Assessment/Exam: 02/08/20 19:46 Patient presents to the ED via police officers, apparently for medical clearance and for being high. Patient was able to be aroused, and he does answer questions appropriately, and states that he does not really want any sort of lab work or IVs done today for further investigation, states that he only took Xanax, his urinalysis was positive only for benzodiazepines yesterday , he does appear to be acutely intoxicated from benzodiazepines, he can likely go home and sleep this off. I told him he will have to get a ride home, he is okay with this at this time. He states that his last dose of Xanax was at 3pm. Departure - Departure Time of Disposition: 19:36 Disposition: Home, Self-Care 01 Condition: Good Clinical Impression: Benzodiazepine abuse, Benzodiazepine intoxication - Discharge Information *PRESCRIPTION DRUG MONITORING PROGRAM REVIEWED*: Yes *COPY OF PRESCRIPTION DRUG MONITORING REPORT IN PATIENT ABIEL: No Instructions: Sedative, Hypnotic, or Anxiolytic Use Disorder Forms: ED Department Discharge Additional Instructions: Your evaluated in ER today regarding the use of your benzodiazepines. You were brought in by law enforcement for evaluation, however you are not under arrest and you did not want any sort of labs for investigation or IVs started. You were found vitally stable in the ER, and you should not be operating a motor vehicle, and least until tomorrow morning, as you are quite intoxicated with benzodiazepines. You should go home and sleep this off, you should feel better tomorrow hopefully. Please return to the ER at any time if symptoms change or worsen Sepsis Event Note - Evaluation Sepsis Screening Result: No Definite Risk - Focused Exam Vital Signs: Vital Signs Temp Pulse Resp BP Pulse Ox 02/08/20 18:35 98 F 117 H 18 128/90 94 L Date Exam was Performed: 02/08/20 Time Exam was Performed: 19:40
== END 2020-02-08 20:00 | disposition home or self-care (01) ==
LOC: JD.ED 18:32
DX: F13.129 Sedative, hypnotic or anxiolytic abuse with intoxication, unspecified (principal); Z88.6 Allergy status to analgesic agent; Z88.1 Allergy status to other antibiotic agents; Z91.041 Radiographic dye allergy status
CPT/HCPCS: 99283; 99284